=== PATIENT | male | born 1990 | race Caucasian/White ===

== ENCOUNTER 2020-05-13 12:32 | Outpatient (NON) | payer OTHER, SELFPAY ==
[2020-05-13 23:48] LABS: SARS-CoV-2 RNA PCR Positive
== END 2020-05-13 12:33 ==
PROVIDERS: PCP Family Medicine; Visit Provider Nurse Practitioner Family
DX: R05 Cough (principal); U07.1 COVID-19
CPT/HCPCS: 87635; C9803; U0003

== ENCOUNTER 2020-06-22 17:21 | Outpatient (CLI) | payer OTHER, SELFPAY ==
--- NOTE | ~2020-06-22 | XR_ITS ---
EXAMINATION: XR chest 2V DATE: 06/22/2020 17:53 INDICATION: Cough, history of COVID 19 TECHNIQUE: PA and lateral views of the chest are obtained. COMPARISON: None available FINDINGS: There are patchy nodular and airspace opacities of the mid and lower lung zones. No pleural effusion or pneumothorax is identified. The cardiomediastinal silhouette is normal. IMPRESSION: 1. Patchy nodular and airspace opacities of the lungs, likely pneumonia. Recommend followup radiograp hs in 10-14 days after appropriate therapy to evaluate for improvement/resolution. If persistent, con semaphore operator follow-up with CT of the chest. Reviewed, dictated and finalized at location A. MIXER IMPRESSION: 1. Patchy nodular and airspace opacities of the lungs, likely pneumonia. Recomm end followup radiographs in 10-14 days after appropriate therapy to evaluate fo r improvement/resolution. If persistent, consider follow-up with CT of the ches t.
[2020-06-22 17:40] LABS: Hemoglobin 14.4 g/dL (14.0-18.0); Mean Corpuscular HGB Conc 35.1 g/dl (32-36); Mean Corpuscular Hemoglobin 31.9 pg (26-34); Mean Corpuscular Volume 90.7 fl (80-100); Mean Platelet Volume 9.4 fl (7.4-10.4); Platelet Count Result 259 k/mm3 (150-375); Red Blood Count 4.52 M/mm3 (4.6-6.20); White Blood Count 10.1 K/mm3 (4.5-10.0)
[2020-06-22 17:52] LABS: Alanine Aminotransferase 16 U/L (4-50); Alkaline Phosphatase 101 U/L (38-126); Anion Gap 8 mmol/L (8-16); Aspartate Amino Transferase 26 U/L (17-59); Bilirubin,Total 0.5 mg/dL (0.2-1.3); Blood Urea Nitrogen 11 mg/dL (9-20); Calcium 9.2 mg/dL (8.4-10.2); Carbon Dioxide 28 mmol/L (22-30); Chloride 101 mmol/L (98-107); Estimated Glomerular Filt Rate > 60; Glucose 101 mg/dL (75-110); Potassium 4.1 mmol/L (3.4-5.0); Sodium 137 mmol/L (137-145)
== END 2020-06-22 17:22 | disposition home or self-care (01) ==
PROVIDERS: PCP Family Medicine; Visit Provider Family Medicine
DX: R05 Cough (principal); R07.9 Chest pain, unspecified; R91.8 Other nonspecific abnormal finding of lung field
CPT/HCPCS: 36415; 71046; 80053; 85027

== ENCOUNTER 2020-07-02 13:11 | Outpatient (CLI) | payer OTHER, SELFPAY ==
--- NOTE | ~2020-07-02 | XR_ITS ---
XR chest 2V 07/02/2020 13:25 Indication: Pneumonia Procedure: 2 view chest Comparison: 06/22/2020 Findings: Progression of patchy bilateral airspace disease with multiple nodular densities. Recommend further evaluation with CT to exclude parenchymal nodules. No significant effusion or pneumothorax. No acute osseous abnormality. Impression: 1: Progression of patchy bilateral airspace and nodular densities, most likely infectious/inflammator y although further evaluation with CT is recommended. Reviewed, dictated and finalized at location A. RO ATTENDANT Impression: 1: Progression of patchy bilateral airspace and nodular densities, most likely infectious/inflammatory although further evaluation with CT is recommended.
== END 2020-07-02 13:12 | disposition home or self-care (01) ==
PROVIDERS: PCP Family Medicine; Visit Provider Family Medicine
DX: J18.9 Pneumonia, unspecified organism (principal); R91.8 Other nonspecific abnormal finding of lung field
CPT/HCPCS: 71046

== ENCOUNTER 2020-07-03 13:49 | Outpatient (CLI) | payer OTHER, SELFPAY ==
--- NOTE | ~2020-07-03 | CT_ITS ---
EXAMINATION: CT chest wo con EXAM DATE: 07/03/2020 14:07 INDICATION: Cough. History of COVID. TECHNIQUE: Spiral CT of the chest without contrast. Axial, coronal and sagittal images were reviewe d. Coronal maximum intensity pixel images of chest reviewed. The dose-length product (DLP) for this examination was 238.31 mGy-cm. The exposure was tailored according to patient size (auto mA exposur e control), and iterative reconstruction (ASIR) was used as additional dose reduction technique. Paola elation is made to recent chest x-rays. FINDINGS: There are numerous pulmonary nodules are present with lung base predominance, some with il l-defined halo, appearance most consistent with acute infectious process or possibly from septic embo li. These measure up to 3 cm. Differential diagnosis does include metastatic disease. There are no p leural or pericardial effusions. Tracheobronchial tree is patent. There is no mediastinal, hilar or axillary lymphadenopathy. There is no pneumothorax. Heart normal in size. No evidence of cor onary arterial calcification. Upper abdomen is unremarkable. There is thoracic spondylosis without osteoblastic or osteolytic lesions identified. IMPRESSION: Numerous basilar predominant pulmonary nodules, differential diagnosis including infectio n, septic emboli, granulomatosis with polyangiitis (Eddie's granulomatosis), metastatic disease. N o lymphadenopathy. Clinical correlation and follow-up recommended. Reviewed, dictated and finalized at location A. DCAST CHIEF ENGINEER IMPRESSION: Numerous basilar predominant pulmonary nodules, differential diagno sis including infection, septic emboli, granulomatosis with polyangiitis (Wegen er's granulomatosis), metastatic disease. No lymphadenopathy. Clinical correla tion and follow-up recommended.
== END 2020-07-03 13:50 | disposition home or self-care (01) ==
PROVIDERS: PCP Family Medicine; Visit Provider Family Medicine
DX: J18.9 Pneumonia, unspecified organism (principal); U07.1 COVID-19; R91.8 Other nonspecific abnormal finding of lung field
CPT/HCPCS: 71250

== ENCOUNTER 2020-07-15 14:46 | Outpatient (CLI) | payer OTHER, SELFPAY ==
--- NOTE | ~2020-07-15 | CT_ITS ---
EXAMINATION: CT chest wo con DATE: 07/15/2020 15:36 INDICATION: Pneumonia, unspecified organism TECHNIQUE: Computed tomography (CT) of the chest was performed without intravenous contrast. The dose -length product (DLP) was 222.47 mGy-cm. Automated exposure control and iterative reconstruction tech nique were employed. COMPARISON: 07/03/2020 FINDINGS: There are multiple persistent nodules scattered throughout the lungs which demonstrate slig ht interval decrease in size. There is no pleural effusion or pneumothorax. No pathologically enlarge d thoracic lymph nodes are identified. The heart size is normal. IMPRESSION: 1. Multiple pulmonary nodules with slight interval improvement since the comparison examination, like ly infectious with differential as previously discussed. Reviewed, dictated and finalized at location A. ER OPERATOR IMPRESSION: 1. Multiple pulmonary nodules with slight interval improvement since the compar pearl examination, likely infectious with differential as previously discussed.
== END 2020-07-15 14:47 | disposition home or self-care (01) ==
PROVIDERS: PCP Family Medicine; Visit Provider Family Medicine
DX: J18.9 Pneumonia, unspecified organism (principal); R91.8 Other nonspecific abnormal finding of lung field
CPT/HCPCS: 71250

== ENCOUNTER 2023-12-20 11:06 | Outpatient (CLI) | payer OTHER, SELFPAY ==
--- NOTE | ~2023-12-20 | XR_ITS ---
XR chest 2V Ordering provider: Chapo Frye MD History: 33 years Male with . R05 - Cough . Comparison: July 02, 2020 FINDINGS: MEDIASTINUM: The cardiac silhouette is not enlarged. LUNGS: No infiltrates, effusions or pneumothorax. OTHER: No free air under the diaphragm. IMPRESSION: No acute cardiopulmonary pathology. Reviewed, dictated and finalized at location A.
== END 2023-12-20 11:07 ==
PROVIDERS: PCP Family Medicine; Visit Provider Family Medicine
DX: R05.9 Cough, unspecified (principal)
CPT/HCPCS: 71046